=== PATIENT | female | born 1965 | race Two or more races ===

== ENCOUNTER 2016-08-27 20:17 | Emergency (ER) | payer SELFPAY ==
[~2016-08-27] VITALS: Ht 157.5 cm; Wt 63.0 kg
[2016-08-28 00:54] VITALS: BP 138/75
== END 2016-08-28 01:28 | disposition home or self-care (01) ==
LOC: ER 08-28 01:03
DX: H00.14 Chalazion left upper eyelid (principal); H01.006 Unspecified blepharitis left eye, unspecified eyelid; L71.9 Rosacea, unspecified
CPT/HCPCS: 81025; 99283